=== PATIENT | male | born 1995 | race African-American/Black ===

== ENCOUNTER 2017-07-26 17:04 | Emergency (ER) | payer OTHER, BC ==
[2017-07-26] MEDS ORDERED: MOTRIN PO ONE (18:44)
[2017-07-26] MEDS ORDERED: MOTRIN ONE (18:47)
[2017-07-26 21:59] VITALS: BP 140/83
--- NOTE | 2017-07-26 22:37 | XRay Report ---
FINAL REPORT PROCEDURE: XR KNEE BILAT 1-2V TECHNIQUE: LEFT knee radiographs, AP, lateral and sunrise views. CPT 16058 HISTORY: bilat knee pain COMPARISON: No prior studies are available for comparison. FINDINGS: Fracture (s) and/or Dislocation(s): None . Alignment: Normal . Joint space(s): Normal . Soft tissues: Normal . Bone mineralization: Normal . Foreign bodies: None . IMPRESSION: Normal Examination.
--- NOTE | 2017-07-26 22:42 | XRay Report ---
FINAL REPORT PROCEDURE: XR SPINE THORACIC 2V TECHNIQUE: Thoracic spine radiographs including AP, lateral, and Swimmer's views. CPT 46421 HISTORY: upper back pain COMPARISON: No prior studies are available for comparison. FINDINGS: Alignment: Normal . Vertebral body height: Normal . Disk spaces: Normal . Fracture(s): None . Bone mineralization: Normal . IMPRESSION: Normal Examination.
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
== END 2017-07-26 23:12 | disposition home or self-care (01) ==
LOC: ED 17:04
DX: S76.912A Strain of unspecified muscles, fascia and tendons at thigh level, left thigh, initial encounter (principal); S76.911A Strain of unspecified muscles, fascia and tendons at thigh level, right thigh, initial encounter; S29.012A Strain of muscle and tendon of back wall of thorax, initial encounter; M54.2 Cervicalgia; V89.2XXA Person injured in unspecified motor-vehicle accident, traffic, initial encounter; Y93.89 Activity, other specified; Y92.89 Other specified places as the place of occurrence of the external cause; Y99.8 Other external cause status
CPT/HCPCS: 72070; 99283